=== PATIENT | female | born 2000 | race Two or more races ===

== ENCOUNTER 2023-09-03 18:16 | Emergency (ER) | payer OTHER ==
[~2023-09-03] VITALS: Ht 167.6 cm; Wt 111.4 kg
[2023-09-03 18:53] VITALS: BP 149/88; PULSE 90; RESP 16; TEMP 97.8; O2SAT 98
[2023-09-03] MEDS ORDERED: IBUP-1456 PO (20:37)
[2023-09-03] MEDS: HYDROcodone-ACET 5/325MG TAB PO ONE (21:01)
== END 2023-09-03 21:57 | disposition home or self-care (01) ==
LOC: ER 18:16
DX: S83.411A Sprain of medial collateral ligament of right knee, initial encounter (principal); Z88.0 Allergy status to penicillin; Z98.890 Other specified postprocedural states; W18.39XA Other fall on same level, initial encounter; Y93.89 Activity, other specified; Y92.89 Other specified places as the place of occurrence of the external cause; Y99.8 Other external cause status
CPT/HCPCS: 29505; 73562